=== PATIENT | female | born 1970 | race Hispanic/Latino ===

== ENCOUNTER 2016-07-11 11:38 | Outpatient (CLI) | payer MEDICAID ==
--- NOTE | 2016-07-12 08:25 | Vascular Lab Report ---
Right Lower Extremity Venous Duplex Study: Reason for Exam: Edema. Comments on the Right: All veins visualized are freely compressible without evidence of internal echogenicity. Flow is spontaneous and phasic throughout. No evidence of acute or chronic thrombus is seen in any of the vessels visualized. Comments on the Left: A limited duplex study was done of the proximal veins of the left lower extremity. All veins visualized are freely compressible without evidence of internal echogenicity. Flow is spontaneous and phasic throughout. No evidence of acute or chronic thrombus is seen in any of the vessels visualized. Impression: No evidence of acute or chronic deep venous thrombosis in the right lower extremity.
== END 2016-07-11 11:39 | disposition home or self-care (01) ==
LOC: VAS 11:38
PROVIDERS: ATTEND Internal Medicine
DX: M79.661 Pain in right lower leg (principal)

== ENCOUNTER 2016-11-05 09:37 | Outpatient (CLI) | payer MEDICAID ==
[2016-11-05 10:55] LABS: Blood Urea Nitrogen 8 mg/dL (7-17)
[2016-11-05] MEDS ORDERED: NACL ONE (11:41)
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
== END 2016-11-05 09:38 | disposition home or self-care (01) ==
LOC: CT 09:37
PROVIDERS: ATTEND Orthopaedic Surgery Orthopaedic Trauma
DX: D35.02 Benign neoplasm of left adrenal gland (principal); M47.896 Other spondylosis, lumbar region; M12.88 Other specific arthropathies, not elsewhere classified, other specified site; I70.0 Atherosclerosis of aorta
CPT/HCPCS: 36415; 72132; 82565; 84520; Q9967

== ENCOUNTER 2017-03-01 09:04 | Emergency (ER) | payer OTHER, MEDICAID ==
[2017-03-01 09:20] VITALS: BP 123/78
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
[2017-03-01] MEDS ORDERED: TORADOL IM ONE (11:38)
== END 2017-03-01 12:02 | disposition home or self-care (01) ==
LOC: ED 09:04
DX: M54.5 Low back pain (principal); J45.909 Unspecified asthma, uncomplicated; F20.9 Schizophrenia, unspecified; F31.9 Bipolar disorder, unspecified; F41.9 Anxiety disorder, unspecified; J44.9 Chronic obstructive pulmonary disease, unspecified; F17.200 Nicotine dependence, unspecified, uncomplicated; V89.2XXA Person injured in unspecified motor-vehicle accident, traffic, initial encounter; Y93.89 Activity, other specified; Y92.89 Other specified places as the place of occurrence of the external cause; Y99.8 Other external cause status
CPT/HCPCS: 72100; 96372; 99283; J1885

== ENCOUNTER 2017-08-07 07:01 | Day surgery (SDC) | payer MEDICAID ==
[2017-08-07] MEDS ORDERED: NACL 0.9% 1000 ML 1,000 ML IV SCH (09:00)
[2017-08-07] MEDS ORDERED: DIPRIVAN 10 MG/ML IV ONE ×2 (09:14)
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
[2017-08-07] MEDS ORDERED: XYLOCAINE MPF 2% ONE (10:00)
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
--- NOTE | 2017-08-07 10:03 | Operative Report ---
Operative Report Operative Report: Colonoscopy Procedure Note with Polypectomy (snare and biopsy) Date of procedure: 08/07/2017 Endoscopist: Jerzy Wilson Pre-op diagnosis: hematochezia, constipation, abdominal pain Post-op diagnosis: two colon polyps removed, internal hemorrhoids Anesthesia: MAC Complications: No immediate complications Estimated blood loss: minimal Procedure: After consent was obtained, the patient was placed in the left lateral decubitus position. The fujinon colonoscope was inserted into the patient's rectum under direct vision, and advanced to the cecum without difficulty. The patient tolerated the procedure well. The views of the mucosa were good. The quality of prep was fair/adequate. The patient's vital signs were monitored continuously throughout the procedure. Findings: There was one < 5 mm sessile polyp in the descending colon. The polyp was removed with cold forceps biopsy and retrieved. There was an ~8 mm sessile polyp in the sigmoid colon. The polyp was removed with cold snare polypectomy and retrieved. Internal hemorrhoids were visualized on retroflexion view. Impression: 1. Two colon polyps removed as above 2. Internal hemorrhoids Recommendations: -follow-up pathology -continue current medications -repeat colonoscopy for surveillance in 5 years based on pathology results -return to GI clinic as scheduled
[2017-08-07 10:13] VITALS: BP 107/80
--- NOTE | 2017-08-07 12:09 | Anesthesia Day of Surgery ---
Anesthesia Day of Surgery - Day of Surgery Patient Examined: Yes Patient H&P Reviewed: Yes Patient is NPO: Yes
--- NOTE | 2017-08-07 12:09 | Anesthesia Consultation ---
Anesthesia Consult and Med Hx Date of service: 08/07/17 - Airway Anesthetic Teeth Evaluation: Poor, Edentulous (upper) ROM Head & Neck: Adequate Mental/Hyoid Distance: Adequate Mallampati Class: Class II Intubation Access Assessment: Probably Good - Pulmonary Exam CTA: Yes - Cardiac Exam Cardiac Exam: RRR - Pre-Operative Health Status ASA Pre-Surgery Classification: ASA3 Proposed Anesthetic Plan: MAC - Pulmonary Hx Smoking: Yes Hx Asthma: Yes COPD: Yes Hx Sleep Apnea: Yes (cpap) - Cardiovascular System Hx Hypertension: Yes - Central Nervous System CVA: Yes (2013 PT STATES NO DEFICITS) - Additional Comments Anesthesia Medical History Comments: right leg sciatic pain
== END 2017-08-07 07:02 | disposition home or self-care (01) ==
LOC: GIO 07:01
PROVIDERS: ATTEND Internal Medicine Gastroenterology
DX: D12.4 Benign neoplasm of descending colon (principal); K63.5 Polyp of colon; K59.00 Constipation, unspecified; K64.8 Other hemorrhoids; K21.9 Gastro-esophageal reflux disease without esophagitis; I10 Essential (primary) hypertension; J44.9 Chronic obstructive pulmonary disease, unspecified; G47.30 Sleep apnea, unspecified; F17.200 Nicotine dependence, unspecified, uncomplicated; Z99.89 Dependence on other enabling machines and devices; Z86.73 Personal history of transient ischemic attack (TIA), and cerebral infarction without residual deficits
CPT/HCPCS: 43235; 45380; 45385; 81025; 88305; J2704; J7030

== ENCOUNTER 2019-06-12 18:11 | Emergency (ER) | payer OTHER, MEDICAID ==
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
[2019-06-12] MEDS ORDERED: ONDANSETRON 4 MG ODT TAB PO ONE (20:05)
[2019-06-12] MEDS ORDERED: IBUPROFEN 600 MG TAB PO ONE (20:05)
[2019-06-12] MEDS ORDERED: oxyCODONE /ACETAMINOPHEN 5-325MG TAB PO ONE (20:05)
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
[2019-06-12 21:48] VITALS: BP 117/84
== END 2019-06-12 21:52 | disposition home or self-care (01) ==
LOC: ED 18:11
DX: S43.491A Other sprain of right shoulder joint, initial encounter (principal); M62.830 Muscle spasm of back; M62.838 Other muscle spasm; I11.0 Hypertensive heart disease with heart failure; I50.9 Heart failure, unspecified; J44.9 Chronic obstructive pulmonary disease, unspecified; F17.200 Nicotine dependence, unspecified, uncomplicated; V49.49XA Driver injured in collision with other motor vehicles in traffic accident, initial encounter; Y93.89 Activity, other specified; Y92.488 Other paved roadways as the place of occurrence of the external cause; Y99.8 Other external cause status
CPT/HCPCS: 72040; 72100; 74018; 99283; Q0162

== ENCOUNTER 2020-02-16 08:39 | Observation (INO) | payer MEDICAID ==
[2020-02-16 11:15] LABS: Basophils % (Auto) 0.7 % (0.0-1.8); Eosinophils # (Auto) 0.1 K/mm3 (0.0-0.4); Eosinophils % (Auto) 2.5 % (0.0-4.3); Hemoglobin 13.3 gm/dl (10.1-14.3); Lymphocytes # (Auto) 2.1 K/mm3 (1.2-5.4); Lymphocytes % (Auto) 36.8 % (13.4-35.0); Mean Corpuscular HGB Conc 35 % (30-34); Mean Corpuscular Volume 92 fl (79-97); Monocytes # (Auto) 0.6 K/mm3 (0.0-0.8); Monocytes % (Auto) 9.7 % (0.0-7.3); Platelet Count 172 K/mm3 (140-440); Red Blood Count 4.11 M/mm3 (3.65-5.03); Red Cell Distribution Width 13.6 % (13.2-15.2)
[2020-02-16 11:23] LABS: INR 0.93 (0.87-1.13)
[2020-02-16 11:24] LABS: Partial Thromboplastin Time 33.9 Sec. (24.2-36.6)
[2020-02-16] MEDS: SODIUM CHLORIDE 0.9% 500 ML 500 ML IV SCH ×2 (11:25→12:08)
[2020-02-16 11:26] LABS: Blood Urea Nitrogen 9 mg/dL (7-17); Calcium 9.1 mg/dL (8.4-10.2); Hemolysis Index 20
[2020-02-16 11:29] LABS: BUN/Creatinine Ratio 15
[2020-02-16] MEDS ORDERED: VERAPAMIL 5 MG/2 ML INJ ONE (11:30)
[2020-02-16] MEDS ORDERED: HEPARIN/NS 5000 UNIT/500ML 1,000 ML IR ONE (11:30)
[2020-02-16] MEDS ORDERED: LIDOCAINE (2%) 20 MG/1 ML VIAL 20 ML MDV INFILTRATI ONE (11:31)
[2020-02-16] MEDS ORDERED: NITROGLYCERIN SYRINGE 3 ML ONE (11:31)
[2020-02-16] MEDS: MIDAZOLAM 2 MG/2 ML INJ ONE ×2 (12:03→12:20)
[2020-02-16] MEDS: fentaNYL 100 MCG/2 ML INJ ONE ×2 (12:03→12:20)
[2020-02-16] MEDS: HEPARIN 10,000 UNITS/10 ML VIAL ONE ×3 (12:08→12:39)
[2020-02-16] MEDS ORDERED: CLOPIDOGREL 300 MG TAB ONE (12:36)
[2020-02-16] MEDS ORDERED: ALUM-MAG HYDROXIDE-SIMETHICONE 200-200-20MG/5ML ORAL LIQD 30 ML ONE (12:36)
[2020-02-16] MEDS ORDERED: HYDROcodone/ACETAMINOPHEN 5-325 MG TAB PO PRN (13:02)
[2020-02-16] MEDS ORDERED: ACETAMINOPHEN 325 MG TAB PO PRN (13:02)
[2020-02-16] MEDS ORDERED: traMADol 50 MG TAB PO PRN (13:02)
[2020-02-16] MEDS ORDERED: ONDANSETRON 4 MG/2 ML INJ IV PRN (13:02)
--- NOTE | 2020-02-16 13:02 | Event Note ---
Date: 02/16/20 The patient underwent an outpatient cardiac catheterization, indication was chest pain and abnormal thallium stress test. We found a hazy 75 to 80% stenosis of the ramus intermedius artery, which was treated with a deployment of a 2.5 x 8 mm drug-eluting stent, excellent angiographic result and no complications. The patient will be admitted for overnight post PCI observation, we will add aspirin and Plavix to her regimen, as well as atorvastatin 40 mg. Anticipated discharge tomorrow morning.
[2020-02-16] MEDS ORDERED: SODIUM CHLORIDE 0.9% 1000 ML 1,000 ML IV SCH (13:15)
[2020-02-16] MEDS ORDERED: METOPROLOL TARTRATE 25 MG TAB PO SCH (14:00)
[2020-02-16] MEDS ORDERED: ALPRAZolam 1 MG TAB PO PRN (14:00)
--- NOTE | 2020-02-16 14:25 | Cardiac Catherization Report ---
CARDIAC CATHETERIZATION AND CORONARY ANGIOPLASTY REPORT REASON FOR PROCEDURE: The patient is a 49-year-old woman who is referred to the cardiovascular lab director due to complaints of chest pain and abnormal thallium stress test. There was a perfusion defect in the mid anteroseptal region. PROCEDURES: 1. Left heart catheterization. 2. Selective left and right coronary angiography. 3. Left ventricular angiography. 4. Coronary angioplasty and stenting of the ramus intermedius artery. 5. Sedation time, start 12:03, end 12:34. The patient was prepped and draped in a sterile fashion after informed consent. The right radial cath site was prepped and draped after a negative Evans's test. The right radial artery was entered using Seldinger technique followed by placement of a 6-Spanish hydrophilic sheath. Routine radial cocktail was administered via the sheath. Selective left and right coronary angiography was performed using a #3.5 left Manny, and a #4 right Manny. The right Manny was used for left ventricular angiography. The angiograms were reviewed. CORONARY ANGIOGRAPHY: The left main coronary artery was free of significant disease. The left anterior descending artery contained mild calcification in the proximal segment, associated with mild luminal irregularities. Mild irregularity was also noted in the mid segment. Otherwise, the LAD and diagonal branches were free of significant disease. A medium-sized ramus intermedius artery contained a hazy, eccentric 75-80% stenosis of its proximal segment. The circumflex artery and its obtuse marginal branches were free of significant disease. The right coronary artery was dominant, and contained only mild irregularities in its mid segment. There was very mild left ventricular systolic dysfunction with ejection fraction 45-50%. CORONARY ANGIOPLASTY: After review of the angiograms, ad hoc coronary angioplasty of the ramus intermedius artery was performed. We selected a #3.5 Manny guiding catheter and advanced to the left coronary ostium. A 0.014 inch Intake Worker 50 guidewire was directed into the ramus intermedius across the lesional segment. In a primary stenting maneuver, we deployed a 2.5 x 8 mm drug-eluting stent across the lesional segment and inflated to optimal pressures. Post-stenting, the catheters and the wires were removed, angiograms revealed an excellent angiographic result, 0 residual stenosis and STACIE 3 flow maintained down the vessel. Procedure was well tolerated by the patient and there were no complications. The catheters and the wires were removed, sheath removed, and hemostasis achieved using a TR band. The patient was returned to the post-procedure unit in stable condition. There were no complications. CONCLUSION: 1. Hazy, eccentric, 75-80% stenosis of the proximal segment of the ramus intermedius artery. 2. Otherwise, mild nonobstructive irregularities in other coronary segments. 3. Successful ad hoc angioplasty and stenting of the ramus intermedius, excellent angiographic result and 0 residual stenosis following deployment of a 2.5 x 8 mm drug-eluting stent. 4. Very mild left ventricular systolic dysfunction with ejection fraction 45-50%. JOB# [id number] CA/NTS
[2020-02-16 20:03] VITALS: BP 94/62
[2020-02-16] MEDS ORDERED: ZOLPIDEM 5 MG TAB PO PRN (22:00)
[2020-02-17] MEDS ORDERED: CLOPIDOGREL 75 MG TAB PO SCH (10:00)
[2020-02-17] MEDS ORDERED: VENLAFAXINE 75 MG TAB PO SCH (10:00)
[2020-02-17] MEDS ORDERED: ASPIRIN EC 325 MG TAB PO SCH (10:00)
--- NOTE | 2020-02-17 10:03 | Event Note ---
Date: 02/17/20 I was made aware on rounds this morning that this patient who had a coronary stent implanted yesterday afternoon, discharged herself AGAINST MEDICAL ADVICE last night about 8 PM. The event is documented in the nurse notes. Apparently the patient left the hospital without prescriptions for her oral antiplatelet therapy particularly Plavix. We will attempt to contact her today from my office to sending a prescription for Plavix therapy, and again strongly reminded her of the imperative to comply with dual oral antiplatelet therapy to avoid acute stent thrombosis and a myocardial infarction.
--- NOTE | 2020-02-17 10:07 | Short Stay Summary ---
Short Stay Documentation Date of service: 02/17/20 - History H&P: obtained from office - Allergies and Medications Current Medications: Allergies No Known Allergies Allergy (Unverified 07/11/16 11:38) Home Medications Medication Instructions Recorded Confirmed Last Taken Type ALPRAZolam [Xanax TAB] 1 tab PO TID 08/07/17 02/16/20 02/15/20 History 1 mg Budesonide/Formoterol Fumarate 2 puff IN Q6H 08/07/17 02/16/20 01/31/20 History [Symbicort 160-4.5 Mcg Inhaler] 2 puffs Venlafaxine [Effexor] 1 tab PO QDAY 08/07/17 02/16/20 02/15/20 History 40 mg Ziprasidone [Geodon] 20 mg PO QDAY 08/07/17 02/16/20 02/15/20 History 20 mg Zolpidem [Ambien] 5 mg PO HS 08/07/17 02/16/20 02/15/20 History 5 mg tiZANidine [Zanaflex 4mg TAB] 4 mg PO Q8H PRN #15 tablet 06/12/19 02/16/20 02/15/20 Rx 4 mg Aspirin EC [Halfprin EC] 81 mg PO DAILY 02/16/20 02/16/20 02/16/20 06:45 History Ergocalciferol (Vitamin D2) 50,000 units PO QWEEK 02/16/20 02/16/20 02/09/20 History [Vitamin D2] 94228 units HYDROcodone/APAP 10-325 [[place] 1 tab PO TID 02/16/20 02/16/20 02/15/20 History 10-325 mg TAB] 1 tab Metoprolol Xl [Metoprolol 25 mg PO HS 02/16/20 02/16/20 02/15/20 History SUCCINATE ER TAB] 25 mg - Brief post op/procedure progress note Date of procedure: 02/16/20 (SEE DICTATED CATH REPORT) - Hospital course Hospital course: I was made aware on rounds this morning that this patient who had a coronary stent implanted yesterday afternoon, discharged herself AGAINST MEDICAL ADVICE l ast night about 8 PM. The event is documented in the nurse notes. Apparently the patient left the hospital without prescriptions for her oral antiplatelet therapy particularly Plavix. We will attempt to contact her today from my office to sending a prescription for Plavix therapy, and again strongly reminded her of the imperative to comply with dual oral antiplatelet therapy to avoid acute stent thrombosis and a myocardial infarction. - Disposition Condition at discharge: Undetermined Disposition: [id number] LEFT AGAINST MED ADVICE - Discharge Diagnoses (1) CAD (coronary artery disease) Status: Acute (2) Coronary angioplasty status Status: Acute Short Stay Discharge Plan Follow up with: DAKOTA JIMENEZ MD [Primary Care Provider] - 7 Days
== END 2020-02-16 20:10 | disposition left against medical advice (07) ==
LOC: CATHLABREC 08:39 → 4A 13:02
PROVIDERS: ADMIT Internal Medicine Cardiovascular Disease; ATTEND Internal Medicine Cardiovascular Disease
DX: R07.89 Other chest pain (principal); I11.0 Hypertensive heart disease with heart failure; I50.9 Heart failure, unspecified; I20.0 Unstable angina; F17.210 Nicotine dependence, cigarettes, uncomplicated; H53.8 Other visual disturbances; F41.9 Anxiety disorder, unspecified; M19.90 Unspecified osteoarthritis, unspecified site; F31.9 Bipolar disorder, unspecified; J44.9 Chronic obstructive pulmonary disease, unspecified; E66.9 Obesity, unspecified; G47.30 Sleep apnea, unspecified; G47.00 Insomnia, unspecified; K21.9 Gastro-esophageal reflux disease without esophagitis; Z98.61 Coronary angioplasty status; Z95.0 Presence of cardiac pacemaker; Z79.82 Long term (current) use of aspirin; Z79.899 Other long term (current) drug therapy; Z98.890 Other specified postprocedural states; Z68.32 Body mass index [BMI] 32.0-32.9, adult
CPT/HCPCS: 36415; 80048; 85025; 85610; 85730; 93005; 93458; C1769; C1874; C1887; C1894; C9600; G0378; J1644; J2250; J3010; J7040; 92928; Q9967

== ENCOUNTER 2020-08-30 10:27 | Emergency (ER) | payer MEDICAID ==
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
[2020-08-30 12:02] LABS: Bilirubin,Urine NEG (Negative); Blood,Urine SM (Negative); Color,Urine Yellow (Yellow); Mucus,Urine 3+ /HPF
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
[2020-08-30 12:37] LABS: Basophils # (Auto) 0.1 K/mm3 (0.0-0.1); Basophils % (Auto) 0.5 % (0.0-1.8); Eosinophils # (Auto) 0.1 K/mm3 (0.0-0.4); Hematocrit 43.3 % (30.3-42.9); Hemoglobin 15.1 gm/dl (10.1-14.3); Lymphocytes # (Auto) 2.6 K/mm3 (1.2-5.4); Lymphocytes % (Auto) 27.4 % (13.4-35.0); Mean Corpuscular HGB Conc 35 % (30-34); Mean Corpuscular Volume 93 fl (79-97); Monocytes # (Auto) 0.7 K/mm3 (0.0-0.8); Monocytes % (Auto) 7.9 % (0.0-7.3); Platelet Count 227 K/mm3 (140-440); Red Blood Count 4.66 M/mm3 (3.65-5.03); Red Cell Distribution Width 13.9 % (13.2-15.2)
[2020-08-30 12:55] LABS: Alanine Aminotransferase 9 units/L (7-56); Albumin 4.6 g/dL (3.9-5); Blood Urea Nitrogen 14 mg/dL (7-17); Calcium 9.5 mg/dL (8.4-10.2); Hemolysis Index 13
[2020-08-30 13:00] LABS: BUN/Creatinine Ratio 23
[2020-08-30 16:47] VITALS: BP 109/72
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
== END 2020-08-30 17:30 | disposition home or self-care (01) ==
LOC: ED 10:27
DX: K58.9 Irritable bowel syndrome, unspecified (principal); I11.0 Hypertensive heart disease with heart failure; I50.9 Heart failure, unspecified; M19.91 Primary osteoarthritis, unspecified site; J44.9 Chronic obstructive pulmonary disease, unspecified; F17.200 Nicotine dependence, unspecified, uncomplicated; Z98.890 Other specified postprocedural states; Z79.899 Other long term (current) drug therapy
CPT/HCPCS: 36415; 74176; 80053; 81001; 83690; 84703; 85025

== ENCOUNTER 2020-09-03 17:33 | Inpatient (IN) | payer MEDICAID ==
[2020-09-03 18:33] LABS: Basophils % (Auto) 0.3 % (0.0-1.8); Eosinophils % (Auto) 0.1 % (0.0-4.3); Hematocrit 47.7 % (30.3-42.9); Hemoglobin 16.8 gm/dl (10.1-14.3); Lymphocytes # (Auto) 1.9 K/mm3 (1.2-5.4); Lymphocytes % (Auto) 16.9 % (13.4-35.0); Mean Corpuscular HGB Conc 35 % (30-34); Mean Corpuscular Volume 92 fl (79-97); Monocytes # (Auto) 1.5 K/mm3 (0.0-0.8); Monocytes % (Auto) 13.7 % (0.0-7.3); Platelet Count 257 K/mm3 (140-440); Red Blood Count 5.19 M/mm3 (3.65-5.03)
[2020-09-03] MEDS ORDERED: MORPHINE 2 MG/1 ML INJ IV ONE (18:46)
[2020-09-03] MEDS ORDERED: SODIUM CHLORIDE 0.9% 1000 ML 1,000 ML IV ONE (18:46)
[2020-09-03] MEDS ORDERED: ONDANSETRON 4 MG/2 ML INJ IV ONE (18:46)
[2020-09-03 18:56] LABS: Albumin 4.6 g/dL (3.9-5); Calcium 9.6 mg/dL (8.4-10.2)
[2020-09-03] MEDS ORDERED: ACETAMINOPHEN 325 MG TAB PO PRN (21:41)
[2020-09-03] MEDS ORDERED: tiZANidine TAB 4 MG TAB PO PRN (21:43)
[2020-09-03] MEDS ORDERED: hydrALAZINE 20 MG/1 ML INJ IV PRN (21:43)
[2020-09-03] MEDS ORDERED: ZOLPIDEM 5 MG TAB PO SCH (22:00)
[2020-09-03] MEDS: HEPARIN 5,000 UNIT/1 ML VIAL SUB-Q SCH (22:22)
[2020-09-03] MEDS: ONDANSETRON 4 MG/2 ML INJ IV PRN (23:33)
[2020-09-03] MEDS: PANTOPRAZOLE 40 MG INJ IV SCH (23:33)
[2020-09-03] MEDS: MORPHINE 2 MG/1 ML INJ IV PRN (23:34)
[2020-09-03] MEDS: D5W/0.45% NACL 1,000 ML IV SCH (23:34)
[2020-09-04] MEDS: METOPROLOL SUCCINATE XL 25 MG TAB PO SCH ×2 (00:10→21:54)
[2020-09-04] MEDS: MORPHINE 2 MG/1 ML INJ IV PRN ×3 (04:18→20:54)
[2020-09-04 04:49] LABS: Hematocrit 42.4 % (30.3-42.9); Hemoglobin 14.7 gm/dl (10.1-14.3); Mean Corpuscular HGB Conc 35 % (30-34); Mean Corpuscular Volume 94 fl (79-97); Platelet Count 194 K/mm3 (140-440); Red Blood Count 4.54 M/mm3 (3.65-5.03); Red Cell Distribution Width 13.7 % (13.2-15.2)
[2020-09-04 05:06] LABS: Calcium 8.6 mg/dL (8.4-10.2)
[2020-09-04] MEDS: HEPARIN 5,000 UNIT/1 ML VIAL SUB-Q SCH ×3 (05:13→21:53)
[2020-09-04 06:06] LABS: Band Neutrophils # (Manual) 0.3 K/mm3; Total Cells Counted 100
[2020-09-04 06:07] LABS: Anisocytosis 1+; Platelet Estimate Consistent w Auto
[2020-09-04] MEDS: D5W/0.45% NACL 1,000 ML IV SCH ×2 (08:06→23:41)
[2020-09-04] MEDS: ALPRAZolam 1 MG TAB PO SCH ×2 (08:06→22:51)
[2020-09-04] MEDS ORDERED: VENLAFAXINE 75 MG TAB PO SCH (10:00)
[2020-09-04] MEDS ORDERED: LIDOCAINE VISCOUS 2% 15 ML ORAL LIQD PO ONE (10:28)
[2020-09-04] MEDS: PANTOPRAZOLE 40 MG INJ IV SCH ×2 (10:49→21:53)
[2020-09-04] MEDS: ZIPRASIDONE 20 MG CAP PO SCH (11:12)
[2020-09-04] MEDS: ONDANSETRON 4 MG/2 ML INJ IV PRN ×2 (11:44→20:53)
[2020-09-04 11:59] LABS: Bilirubin,Urine NEG (Negative); Blood,Urine SM (Negative); Color,Urine Yellow (Yellow); Mucus,Urine 1+ /HPF; Urobilinogen,Urine < 2.0 mg/dL (<2.0)
[2020-09-04] MEDS ORDERED: PHENOL 1.4% 177 ML BOTTLE MM PRN (12:04)
[2020-09-04] MEDS: POTASSIUM CHLORIDE 10 MEQ 10 MEQ/100 ML BAG IV SCH ×4 (14:20→22:54)
[2020-09-04] MEDS ORDERED: MAGNESIUM SULFATE 4 GM/100 ML BAG IV ONE (14:37)
[2020-09-04] MEDS: LORazepam 2 MG/ML VIAL IV PRN ×2 (15:50→23:44)
[2020-09-05] MEDS: MORPHINE 2 MG/1 ML INJ IV PRN (01:59)
[2020-09-05 04:52] LABS: Blood Urea Nitrogen 18 mg/dL (7-17); Calcium 8.3 mg/dL (8.4-10.2); Hemolysis Index 0
[2020-09-05 04:55] LABS: BUN/Creatinine Ratio 26
[2020-09-05] MEDS: HEPARIN 5,000 UNIT/1 ML VIAL SUB-Q SCH ×3 (05:24→21:53)
[2020-09-05] MEDS: ONDANSETRON 4 MG/2 ML INJ IV PRN ×3 (05:24→18:15)
[2020-09-05] MEDS ORDERED: D5NS W/KCL 20 MEQ 20 MEQ/1,000 ML BAG IV SCH (08:00)
[2020-09-05] MEDS: PANTOPRAZOLE 40 MG INJ IV SCH ×2 (09:44→21:53)
[2020-09-05] MEDS: ZIPRASIDONE 20 MG CAP PO SCH (09:51)
[2020-09-05] MEDS ORDERED: ceFAZolin/STERILE WATER 2 GM/20 ML SYRINGE IV NR (10:00)
[2020-09-05] MEDS ORDERED: metroNIDAZOLE/NS 500 MG/100 ML 500 MG/100 ML BAG IV NR (10:00)
[2020-09-05] MEDS: POTASSIUM CHLORIDE 10 MEQ 10 MEQ/100 ML BAG IV SCH ×3 (10:17→15:56)
[2020-09-05] MEDS ORDERED: SODIUM CHLORIDE 0.9% 1000 ML 1,000 ML ONE (10:42)
[2020-09-05] MEDS ORDERED: BUPIVACAINE/PF (0.5%) 5 MG/1 ML 30 ML VIAL INFILTRATI ONE ×2 (10:48→12:10)
[2020-09-05] MEDS ORDERED: LIDOCAINE (1%) 10 MG/1 ML VIAL 20 ML MDV ONE (10:48)
[2020-09-05] MEDS ORDERED: HYDROmorphone 1 MG/1 ML INJ ONE ×3 (11:13→14:19)
[2020-09-05] MEDS ORDERED: dexAMETHasone 20 MG/5 ML VIAL ONE (11:13)
[2020-09-05] MEDS ORDERED: LIDOCAINE MPF (2%) 20 MG/1 ML VIAL 5 ML ONE (11:13)
[2020-09-05] MEDS ORDERED: ONDANSETRON 4 MG/2 ML INJ ONE (11:13)
[2020-09-05] MEDS ORDERED: ROCURONIUM 50 MG/5 ML INJ IV ONE (11:13)
[2020-09-05] MEDS ORDERED: propofoL 200 MG/20 ML VIAL IV ONE (11:13)
[2020-09-05] MEDS ORDERED: SUCCINYLCHOLINE CHLORIDE 200 MG/10 ML INJ MDV ONE (11:22)
[2020-09-05] MEDS ORDERED: WATER FOR IRRIG STERILE 1,500 ML BOTTLE IR ONE (12:10)
[2020-09-05] MEDS ORDERED: LIDOCAINE (1%) 10 MG/1 ML VIAL 20 ML MDV INFILTRATI ONE (12:10)
[2020-09-05] MEDS ORDERED: LACTATED RINGERS 1,000 ML ONE ×2 (12:33→13:43)
[2020-09-05] MEDS ORDERED: ONDANSETRON 4 MG/2 ML INJ IV PRN (14:19)
[2020-09-05] MEDS: HYDROmorphone 1 MG/1 ML INJ IV PRN ×3 (14:20→14:48)
[2020-09-05] MEDS ORDERED: HYDROmorphone 1 MG/1 ML INJ IV PRN ×2 (14:22→16:35)
[2020-09-05] MEDS ORDERED: GLYCOPYRROLATE 0.4 MG/2 ML INJ ONE (15:25)
[2020-09-05] MEDS ORDERED: NEOSTIGMINE 10MG/10 ML INJ MDV ONE (15:25)
[2020-09-05] MEDS: PIPERACIL/TAZOBACTA 4.5/NS 100 4.5 GM/100 ML VIAL IV SCH (17:08)
[2020-09-05] MEDS: KETOROLAC 30 MG/1 ML INJ IV SCH ×2 (17:09→22:25)
[2020-09-05] MEDS: D5NS W/KCL 20 MEQ 20 MEQ/1,000 ML BAG IV SCH (17:09)
[2020-09-05] MEDS: LORazepam 2 MG/ML VIAL IV PRN (18:17)
[2020-09-06] MEDS: PIPERACIL/TAZOBACTA 4.5/NS 100 4.5 GM/100 ML VIAL IV SCH ×4 (02:36→23:45)
[2020-09-06] MEDS: D5NS W/KCL 20 MEQ 20 MEQ/1,000 ML BAG IV SCH ×3 (02:39→22:05)
[2020-09-06] MEDS: KETOROLAC 30 MG/1 ML INJ IV SCH ×4 (04:12→23:48)
[2020-09-06] MEDS: POTASSIUM CHLORIDE 10 MEQ 10 MEQ/100 ML BAG IV SCH ×4 (04:13→20:39)
[2020-09-06] MEDS: HEPARIN 5,000 UNIT/1 ML VIAL SUB-Q SCH ×3 (05:31→22:03)
[2020-09-06 06:22] LABS: Hematocrit 40.4 % (30.3-42.9); Hemoglobin 13.7 gm/dl (10.1-14.3)
[2020-09-06 06:39] LABS: Calcium 7.5 mg/dL (8.4-10.2)
[2020-09-06] MEDS: LORazepam 2 MG/ML VIAL IV PRN (08:46)
[2020-09-06] MEDS: ZIPRASIDONE 20 MG CAP PO SCH (10:28)
[2020-09-06] MEDS: PANTOPRAZOLE 40 MG INJ IV SCH ×2 (10:32→22:03)
[2020-09-06] MEDS ORDERED: LACTATED RINGERS 1,000 ML IV ONE (11:00)
[2020-09-06] MEDS: MORPHINE 2 MG/1 ML INJ IV PRN ×2 (11:59→22:04)
[2020-09-06 14:59] LABS: Basophils % (Auto) 0.2 % (0.0-1.8); Hematocrit 37.3 % (30.3-42.9); Hemoglobin 12.7 gm/dl (10.1-14.3); Lymphocytes # (Auto) 0.7 K/mm3 (1.2-5.4); Lymphocytes % (Auto) 9.1 % (13.4-35.0); Mean Corpuscular HGB Conc 34 % (30-34); Mean Corpuscular Volume 95 fl (79-97); Monocytes # (Auto) 0.6 K/mm3 (0.0-0.8); Monocytes % (Auto) 7.8 % (0.0-7.3); Platelet Count 152 K/mm3 (140-440); Red Blood Count 3.94 M/mm3 (3.65-5.03)
[2020-09-06] MEDS: ONDANSETRON 4 MG/2 ML INJ IV PRN (22:03)
[2020-09-07] MEDS: KETOROLAC 30 MG/1 ML INJ IV SCH ×4 (04:54→22:12)
[2020-09-07] MEDS: D5NS W/KCL 20 MEQ 20 MEQ/1,000 ML BAG IV SCH (05:02)
[2020-09-07] MEDS: HEPARIN 5,000 UNIT/1 ML VIAL SUB-Q SCH ×3 (05:06→22:57)
[2020-09-07] MEDS: PIPERACIL/TAZOBACTA 4.5/NS 100 4.5 GM/100 ML VIAL IV SCH ×2 (09:37→16:31)
[2020-09-07] MEDS: PANTOPRAZOLE 40 MG INJ IV SCH ×2 (09:37→22:57)
[2020-09-07] MEDS: ZIPRASIDONE 20 MG CAP PO SCH (09:38)
[2020-09-07] MEDS: D5W/0.45% NACL 1,000 ML IV SCH (12:31)
[2020-09-08] MEDS: PIPERACIL/TAZOBACTA 4.5/NS 100 4.5 GM/100 ML VIAL IV SCH ×3 (00:08→16:48)
[2020-09-08] MEDS: KETOROLAC 30 MG/1 ML INJ IV SCH ×4 (04:00→22:35)
[2020-09-08] MEDS: HEPARIN 5,000 UNIT/1 ML VIAL SUB-Q SCH ×3 (05:41→22:37)
[2020-09-08] MEDS: D5W/0.45% NACL 1,000 ML IV SCH ×2 (06:01→18:42)
[2020-09-08] MEDS: PANTOPRAZOLE 40 MG INJ IV SCH ×2 (10:28→22:34)
[2020-09-08 10:38] LABS: Basophils % (Auto) 0.5 % (0.0-1.8); Eosinophils # (Auto) 0.2 K/mm3 (0.0-0.4); Eosinophils % (Auto) 4.4 % (0.0-4.3); Hematocrit 31.8 % (30.3-42.9); Hemoglobin 10.7 gm/dl (10.1-14.3); Lymphocytes # (Auto) 0.8 K/mm3 (1.2-5.4); Lymphocytes % (Auto) 18.2 % (13.4-35.0); Mean Corpuscular HGB Conc 34 % (30-34); Mean Corpuscular Volume 95 fl (79-97); Monocytes # (Auto) 0.7 K/mm3 (0.0-0.8); Monocytes % (Auto) 14.7 % (0.0-7.3); Platelet Count 155 K/mm3 (140-440); Red Blood Count 3.34 M/mm3 (3.65-5.03); Red Cell Distribution Width 14.1 % (13.2-15.2)
[2020-09-08] MEDS: ZIPRASIDONE 20 MG CAP PO SCH (10:44)
[2020-09-09] MEDS: PIPERACIL/TAZOBACTA 4.5/NS 100 4.5 GM/100 ML VIAL IV SCH ×3 (01:05→16:15)
[2020-09-09] MEDS: KETOROLAC 30 MG/1 ML INJ IV SCH ×4 (04:09→22:57)
[2020-09-09] MEDS: HEPARIN 5,000 UNIT/1 ML VIAL SUB-Q SCH ×3 (06:17→21:43)
[2020-09-09 07:42] LABS: Blood Urea Nitrogen 6 mg/dL (7-17); Calcium 7.9 mg/dL (8.4-10.2); Hemolysis Index 14
[2020-09-09 08:08] LABS: BUN/Creatinine Ratio 9
[2020-09-09] MEDS ORDERED: tiZANidine TAB 4 MG TAB PO PRN (12:00)
[2020-09-09] MEDS: ZIPRASIDONE 40 MG CAP PO SCH (14:58)
[2020-09-09] MEDS: PANTOPRAZOLE 40 MG INJ IV SCH ×2 (16:04→21:43)
[2020-09-09] MEDS: ONDANSETRON 4 MG/2 ML INJ IV PRN (19:20)
[2020-09-09] MEDS: D5W/0.45% NACL 1,000 ML IV SCH (21:42)
[2020-09-09] MEDS: ALPRAZolam 1 MG TAB PO PRN (21:43)
[2020-09-10] MEDS: PIPERACIL/TAZOBACTA 4.5/NS 100 4.5 GM/100 ML VIAL IV SCH ×3 (00:24→15:13)
[2020-09-10] MEDS: HEPARIN 5,000 UNIT/1 ML VIAL SUB-Q SCH ×3 (06:20→22:12)
[2020-09-10] MEDS: KETOROLAC 30 MG/1 ML INJ IV SCH ×2 (07:19→12:24)
[2020-09-10] MEDS: D5W/0.45% NACL 1,000 ML IV SCH (08:40)
[2020-09-10] MEDS: oxyCODONE /ACETAMINOPHEN 5-325MG TAB PO PRN ×2 (12:23→21:37)
[2020-09-10] MEDS: PANTOPRAZOLE 40 MG INJ IV SCH ×2 (12:27→21:37)
[2020-09-10] MEDS: ZIPRASIDONE 40 MG CAP PO SCH (12:30)
[2020-09-10] MEDS: D5NS W/KCL 20 MEQ 20 MEQ/1,000 ML BAG IV SCH (15:13)
[2020-09-10] MEDS: ALPRAZolam 1 MG TAB PO PRN (21:37)
[2020-09-11] MEDS: D5NS W/KCL 20 MEQ 20 MEQ/1,000 ML BAG IV SCH ×2 (05:11→22:44)
[2020-09-11] MEDS: HEPARIN 5,000 UNIT/1 ML VIAL SUB-Q SCH ×3 (05:13→22:09)
[2020-09-11] MEDS: MORPHINE 2 MG/1 ML INJ IV PRN (05:14)
[2020-09-11] MEDS: ONDANSETRON 4 MG/2 ML INJ IV PRN (05:15)
[2020-09-11] MEDS: PIPERACIL/TAZOBACTA 4.5/NS 100 4.5 GM/100 ML VIAL IV SCH ×5 (05:24→23:13)
[2020-09-11 07:53] LABS: BUN/Creatinine Ratio 6; Blood Urea Nitrogen 3 mg/dL (7-17); Calcium 8.7 mg/dL (8.4-10.2); Hemolysis Index 21
[2020-09-11] MEDS ORDERED: GLYCERIN ADULT 2 GRAM RECT SUPP PR ONE (10:42)
[2020-09-11] MEDS: PANTOPRAZOLE 40 MG INJ IV SCH ×2 (11:11→22:09)
[2020-09-11] MEDS: ZIPRASIDONE 40 MG CAP PO SCH (12:05)
[2020-09-11] MEDS: ALPRAZolam 1 MG TAB PO PRN (15:04)
[2020-09-11] MEDS: oxyCODONE /ACETAMINOPHEN 5-325MG TAB PO PRN ×2 (15:12→22:09)
[2020-09-12] MEDS: HEPARIN 5,000 UNIT/1 ML VIAL SUB-Q SCH ×3 (06:14→21:32)
[2020-09-12] MEDS: oxyCODONE /ACETAMINOPHEN 5-325MG TAB PO PRN (06:16)
[2020-09-12] MEDS: ONDANSETRON 4 MG/2 ML INJ IV PRN (06:20)
[2020-09-12] MEDS: PIPERACIL/TAZOBACTA 4.5/NS 100 4.5 GM/100 ML VIAL IV SCH ×2 (09:21→16:34)
[2020-09-12] MEDS: PANTOPRAZOLE 40 MG INJ IV SCH ×2 (09:21→21:32)
[2020-09-12] MEDS: ZIPRASIDONE 40 MG CAP PO SCH (09:30)
[2020-09-13] MEDS: PIPERACIL/TAZOBACTA 4.5/NS 100 4.5 GM/100 ML VIAL IV SCH ×2 (00:56→09:04)
[2020-09-13] MEDS: D5NS W/KCL 20 MEQ 20 MEQ/1,000 ML BAG IV SCH ×2 (01:16→21:41)
[2020-09-13] MEDS: ONDANSETRON 4 MG/2 ML INJ IV PRN (02:23)
[2020-09-13] MEDS: HEPARIN 5,000 UNIT/1 ML VIAL SUB-Q SCH ×3 (05:50→21:31)
[2020-09-13 08:59] LABS: Hemoglobin 10.2 gm/dl (10.1-14.3); Mean Corpuscular HGB Conc 34 % (30-34); Mean Corpuscular Volume 93 fl (79-97); Platelet Count 273 K/mm3 (140-440); Red Blood Count 3.22 M/mm3 (3.65-5.03); Red Cell Distribution Width 14.6 % (13.2-15.2)
[2020-09-13] MEDS: PANTOPRAZOLE 40 MG INJ IV SCH ×2 (11:17→21:31)
[2020-09-13] MEDS: ZIPRASIDONE 40 MG CAP PO SCH ×3 (11:17→21:31)
[2020-09-13 11:45] LABS: Band Neutrophils # (Manual) 0.2 K/mm3; Myelocytes # (Manual) 0.1 K/mm3; Platelet Estimate Consistent w Auto; RBC Morphology Normal; Total Cells Counted 100
[2020-09-13] MEDS: oxyCODONE /ACETAMINOPHEN 5-325MG TAB PO PRN ×2 (13:06→21:38)
[2020-09-13] MEDS: ALPRAZolam 1 MG TAB PO PRN (21:39)
[2020-09-14] MEDS: HEPARIN 5,000 UNIT/1 ML VIAL SUB-Q SCH (05:39)
[2020-09-14 12:45] VITALS: BP 112/62
[2020-09-14] MEDS: oxyCODONE /ACETAMINOPHEN 5-325MG TAB PO PRN (15:56)
== END 2020-09-14 16:30 | disposition home health service (06) | DRG 329 ==
LOC: ED 17:33 → 3B-SURG 21:32 → OBSVTOIN 09-05 09:12
PROVIDERS: ADMIT Hospitalist; ATTEND Internal Medicine
PROC: 0DB84ZZ Excision of Small Intestine, Percutaneous Endoscopic Approach (ICD-10-PCS; principal; 2020-09-05)
PROC: 0DJD4ZZ Inspection of Lower Intestinal Tract, Percutaneous Endoscopic Approach (ICD-10-PCS; 2020-09-05)
PROC: 0DN84ZZ Release Small Intestine, Percutaneous Endoscopic Approach (ICD-10-PCS; 2020-09-05)
DX: K56.50 Intestinal adhesions [bands], unspecified as to partial versus complete obstruction (principal); N17.0 Acute kidney failure with tubular necrosis; E87.1 Hypo-osmolality and hyponatremia; E83.42 Hypomagnesemia; F31.9 Bipolar disorder, unspecified; F41.1 Generalized anxiety disorder; I11.0 Hypertensive heart disease with heart failure; E87.6 Hypokalemia; I50.32 Chronic diastolic (congestive) heart failure; E86.0 Dehydration; J44.9 Chronic obstructive pulmonary disease, unspecified; J45.909 Unspecified asthma, uncomplicated; F17.210 Nicotine dependence, cigarettes, uncomplicated; M19.90 Unspecified osteoarthritis, unspecified site; F20.9 Schizophrenia, unspecified; Z79.899 Other long term (current) drug therapy; Z79.891 Long term (current) use of opiate analgesic; Z79.01 Long term (current) use of anticoagulants; Z95.5 Presence of coronary angioplasty implant and graft; Z86.73 Personal history of transient ischemic attack (TIA), and cerebral infarction without residual deficits; Z79.82 Long term (current) use of aspirin
CPT/HCPCS: 36415; 74018; 74177; 80048; 80053; 81001; 83690; 83735; 84100; 85007; 85014; 85018; 85025; 88307; 96361; 96374; 96375; G0378; C9113; J0330; J1100; J1170; J1644; J1885; J2060; J2270; J2405; J2543; J2704; J2710; J3475; J3480; J7030; J7120; Q9967